=== PATIENT | female | born 1955 | race Caucasian/White ===

== ENCOUNTER → 2024-07-29 | Outpatient (CLI) | payer MEDICARE, BC, SELFPAY ==
[2024-07-29 13:03] LABS: Collection Type, Urine Clean Catch
[2024-07-29 13:15] LABS: Basophils % (Auto) 1 % (0-2.5); Eosinophils # (Auto) 0.1 Thou/mm3 (0.0-0.5); Eosinophils % (Auto) 2 % (0-10); Hematocrit 41.9 % (36.0-46.0); Hemoglobin 13.6 g/dL (12.0-16.0); Immature Granulocytes % (Auto) 0 % (0-0); Immature Granulocytes Auto 0.01 Thou/mm3 (0.00-0.00); Lymphocytes # (Auto) 0.6 Thou/mm3 (1.0-4.8); Lymphocytes % (Auto) 9 % (10-50); Mean Corpuscular HGB Conc 32.5 g/dl (31.0-37.0); Mean Corpuscular Hemoglobin 27.9 pg (25.0-35.0); Mean Corpuscular Volume 86 fL (80-100); Monocytes # (Auto) 0.6 Thou/mm3 (0.0-0.8); Monocytes % (Auto) 9 % (0-12); Neutrophils # (Auto) 5.1 Thou/mm3 (1.8-7.7); Neutrophils % (Auto) 79 % (37-80); Nucleated Red Blood Cell % 0 /100 WBC (0); Platelet Count 326 Thou/mm3 (140-440); RDW Standard Deviation 46.5 fL (36.4-46.3); Red Blood Count 4.87 Miln/mm3 (4.00-5.20); White Blood Count 6.5 Thou/mm3 (3.6-11.0)
[2024-07-29 13:17] LABS: Bacteria,Urine Rare; Bilirubin,Urine Negative (Negative); Blood,Urine Negative (Negative); Clarity,Urine Clear (Clear/Hazy); Color,Urine Lt-Yellow (Lt Yel-Yel); Culture Indicated,Urine Not Indicated; Glucose, Urine Negative (Negative); Ketones,Urine Negative (Negative); Leukocyte Esterase,Urine Positive (Negative); Nitrite,Urine Negative (Negative); Protein,Urine Negative (Neg - Trace); RBC,Urine 4 /hpf (0-3); Squamous Epithelial Cell,Urine 1 /hpf (0-5); Urobilinogen,Urine Negative mg/dL (0.0-1.0); WBC,Urine 2 /hpf (0-5)
[2024-07-29 13:30] LABS: Vitamin B12 215 pg/mL (211-911); Vitamin D 25 Hydroxy Total 14.2 ng/mL (7.3-40.2)
[2024-07-29 13:49] LABS: Ferritin 11 ng/mL (7.3-270.7); Iron 57 mcg/dL (50-170)
[2024-07-29 13:54] LABS: Alanine Aminotransferase 11 U/L (10-49); Albumin, Serum 4.5 gm/dL (3.4-4.8); Albumin/Globulin Ratio 2.1 (1.2-2.2); Alkaline Phosphatase 145 U/L (46-116); Aspartate Amino Transferase 17 U/L (0-34); BUN/Creatinine Ratio 19 Ratio (12-20); Bilirubin,Total 0.4 mg/dL (0.3-1.2); Blood Urea Nitrogen 15 mg/dL (9-23); Calcium 9.4 mg/dL (8.3-10.6); Calcium (Corrected) 9.4 mg/dL (8.5-10.1); Chloride 105 mMol/L (98-107); Cholesterol 196 mg/dL (132-200); Creatinine (Component) 0.8 mg/dL (0.6-1.3); Globulin 2.1 gm/dL (2.3-3.5); Glucose 85 mg/dL (74-106); HDL Cholesterol 65 mg/dL (40-60); LDL Cholesterol,Calculated 116 mg/dL (0-130); Osmolality,Calculated 279 (275-295); Potassium 4.9 mMol/L (3.4-5.1); Sodium 140 mMol/L (136-145); Thyroid Stimulating Hormone 1.97 uIU/mL (0.55-4.78); Total Protein 6.6 gm/dL (5.7-8.2); Triglycerides 76 mg/dL (30-150); eGFR > 60 See Note
[2024-07-29 14:02] LABS: Anion Gap 8 (7-16)
== END | disposition home or self-care (01) ==
LOC: COPL 12:22
PROVIDERS: PCP Family Medicine; Referring Provider Physician Assistant; Visit Provider Physician Assistant
DX: I10 Essential (primary) hypertension (principal); E55.9 Vitamin D deficiency, unspecified; E78.5 Hyperlipidemia, unspecified; Z98.84 Bariatric surgery status; D51.9 Vitamin B12 deficiency anemia, unspecified
CPT/HCPCS: 36415; 80053; 80061; 81001; 82306; 82607; 82728; 83540; 84443; 85025

== ENCOUNTER → 2024-09-03 | Outpatient (CLI) | payer MEDICARE, BC, SELFPAY ==
--- NOTE | 2024-09-03 09:00 | XR_ITS ---
Examination: Breast ultrasound, unilateral, right complete Date and time of exam: September 03, 2024 0903 hours INDICATIONS: Patient states lump inner right breast which is tender beginning a few months ago Technique: Real-time salter scale ultrasonographic imaging performed right breast including all 4 quadrants as well as nipple retroareolar and axillary region. Findings: No cystic or solid mass IMPRESSION: No cystic or solid mass BI-RADS Category 0: Incomplete: Recommend diagnostic mammography follow-up
--- NOTE | 2024-09-03 09:33 | XR_ITS ---
Examination: Diagnostic digital mammography, bilateral Computer aided detection 3-D breast Tomosynthesis, bilateral Date and time of exam: September 03, 2024 0939 hours INDICATIONS: Patient states right breast lump one to 2:00 position noted 4 months ago Technique: Nonmagnified MLO, CC views of the breasts to been obtained, reconstructed from 3-D Tomosynthesis images. R2 computer aided detection program utilized for evaluation of suspicious masses and/or abnormal calcifications. 3-D Tomosynthesis images obtained. Findings: Scattered areas of fibroglandular density. Benign calcifications. No suspicious masses Impression: BI-RADS Category 2: Benign findings Recommend yearly follow-up mammography.
== END | disposition home or self-care (01) ==
PROVIDERS: PCP Physician Assistant; Referring Provider Physician Assistant; Visit Provider Physician Assistant
DX: R92.323 Mammographic fibroglandular density, bilateral breasts (principal); R92.1 Mammographic calcification found on diagnostic imaging of breast
CPT/HCPCS: 76641; 77062; 77066; G0279

== ENCOUNTER → 2024-09-11 | Outpatient (CLI) | payer MEDICARE, BC, SELFPAY ==
--- NOTE | 2024-09-11 13:50 | XR_ITS ---
Examination: Knee, left , 3 views Technique: Knee AP, lateral, oblique 3 views Date and time of exam: September 11, 2024 1400 hrs. Indications: Knee pain, unable to bear weight on the knee beginning 2 months ago Findings: Prominent osteopenia No acute fracture Moderate narrowing medial joint space Mild to moderate osteoarthritis lateral patellofemoral joints Small knee effusion Impression: Moderate narrowing medial joint space Mild to moderate osteoarthritis lateral patellofemoral joints
[2024-09-17 06:44] LABS: Fecal Globin Result NOT DETECTED (NOT DETECTED)
== END | disposition home or self-care (01) ==
LOC: CDIM 14:04 → SLDO 14:15
PROVIDERS: PCP Family Medicine; Referring Provider Physician Assistant; Visit Provider Radiology Diagnostic Radiology
DX: M25.862 Other specified joint disorders, left knee (principal); M17.12 Unilateral primary osteoarthritis, left knee; I10 Essential (primary) hypertension; E55.9 Vitamin D deficiency, unspecified; E78.5 Hyperlipidemia, unspecified; Z98.84 Bariatric surgery status; D51.9 Vitamin B12 deficiency anemia, unspecified
CPT/HCPCS: 73562; 82274; G0328

== ENCOUNTER → 2025-04-21 | Outpatient (CLI) | payer MEDICARE, BC, SELFPAY ==
[2025-04-21 15:29] LABS: Collection Type, Urine Clean Catch
[2025-04-21 17:34] LABS: Bilirubin,Urine Negative (Negative); Blood,Urine Negative (Negative); Clarity,Urine Clear (Clear/Hazy); Color,Urine Yellow (Lt Yel-Yel); Glucose, Urine Negative (Negative); Ketones,Urine Negative (Negative); Leukocyte Esterase,Urine Negative (Negative); Nitrite,Urine Negative (Negative); PH,Urine 5.5 (5.0-7.0); Protein,Urine Negative (Neg - Trace); RBC,Urine 2 /hpf (0-3); Specific Gravity,Urine 1.024 (1.001-1.035); Squamous Epithelial Cell,Urine 1 /hpf (0-5); Urobilinogen,Urine Negative mg/dL (0.0-1.0); WBC,Urine 1 /hpf (0-5)
== END | disposition home or self-care (01) ==
PROVIDERS: PCP Family Medicine; Referring Provider Registered Nurse; Visit Provider Registered Nurse
DX: N39.0 Urinary tract infection, site not specified (principal); R31.9 Hematuria, unspecified
CPT/HCPCS: 81001; 87086

== ENCOUNTER → 2025-06-28 | Outpatient (CLI) | payer MEDICARE, BC, SELFPAY ==
--- NOTE | 2025-06-28 16:29 | XR_ITS ---
EXAMINATION: Cervical spine, 5 views Technique: Cervical spine AP, AP odontoid, lateral, bilateral obliques, 5 views Exam date and time: June 28, 2025, 1718 hours INDICATIONS: Neck pain beginning 3 weeks ago. FINDINGS: Adequate alignment cervical vertebral bodies. Moderate disc narrowing C4-C5. Advanced disc narrowing C5-C6, C6-C7 Moderate bilateral neuroforaminal stenosis C4-C5, C5-C6, C6-C7 No fracture Intact odontoid IMPRESSION: Advanced degenerative disc disease C5-C6, C6-C7
--- NOTE | 2025-06-28 16:29 | XR_ITS ---
Examination: Knee, left, 3 views Technique: Knee AP, lateral, oblique 3 views Date and time of exam: July 12, 2025, 1400 hours INDICATIONS: Left knee pain beginning 3 weeks ago. FINDINGS: Moderate tricompartment osteoarthritis. No fracture or dislocation IMPRESSION: Moderate tricompartment osteoarthritis
--- NOTE | 2025-06-28 16:29 | XR_ITS ---
Examination: Bilateral hands, 6 views. Technique: AP, Oblique, Lateral each hand total 6 views Date and time of exam: June 28, 2025, 1706 hours INDICATIONS: Bilateral hand pain beginning 3 weeks ago. FINDINGS: Moderate juxta articular bone demineralization. Mild diffuse narrowing joints of the wrists and hands No erosive arthritis No fractures No foreign bodies Impression: Moderate juxta articular bone demineralization Mild diffuse narrowing joints of the wrists and hands No erosive arthritis
--- NOTE | 2025-06-28 16:29 | XR_ITS ---
EXAMINATION: Shoulder bilateral, 6 views Technique: Shoulder AP internal rotation, AP external rotation, Y view each shoulder total 6 views Exam date and time : June 28, 2025, 1715 hours INDICATIONS: Bilateral shoulder pain beginning 3 weeks ago. FINDINGS: Bilateral moderate narrowing glenohumeral joints Bilateral moderate osteoarthritis acromioclavicular joints No shoulder fractures or dislocations IMPRESSION: Bilateral moderate narrowing glenohumeral joints
[2025-07-04 03:05] LABS: Cardiolipin Ab (IgA) <2.0 APL-U/mL; Cardiolipin Ab (IgG) <2.0 GPL-U/mL; Sjogren's antibody (SS-A) <1.0 NEG AI (<1.0 NEGATIVE); Sm Antibody <1.0 NEG AI (<1.0 NEGATIVE)
[2025-07-05 06:38] LABS: ANA Screen, IFA POSITIVE (NEGATIVE); ANA Titer 1:160 titer; B2-Glycoprotein I Ab IgA <2.0 U/mL; B2-Glycoprotein I Ab IgG <2.0 U/mL; B2-Glycoprotein I Ab IgM <2.0 U/mL; CCP Antibody (IgG)* <16 Units; Cardiolipin Ab (IgM) <2.0 MPL-U/mL; Complement Component C3* 179 mg/dL (83-193); Complement Component C4c* 32 mg/dL (15-57); DNA (ds) Antibody* 1 IU/mL; Scl-70 Antibody* <1.0 NEG AI (<1.0 NEGATIVE); Sjogren's Antibody (SS-B) <1.0 NEG AI (<1.0 NEGATIVE); Sm/RNP Antibody <1.0 NEG AI (<1.0 NEGATIVE); Thyroglobulin Antibodies* <1 IU/mL (< OR = 1); Thyroid Peroxidase Antibodies* 3 IU/mL (<9)
== END | disposition home or self-care (01) ==
LOC: COPL 16:20
PROVIDERS: Referring Provider Physician Assistant; Visit Provider Physician Assistant
DX: M50.323 Other cervical disc degeneration at C6-C7 level (principal); M25.812 Other specified joint disorders, left shoulder; M25.811 Other specified joint disorders, right shoulder; M17.12 Unilateral primary osteoarthritis, left knee; M89.8X0 Other specified disorders of bone, multiple sites; M25.50 Pain in unspecified joint; R53.83 Other fatigue
CPT/HCPCS: 36415; 72050; 73030; 73130; 73562; 86038; 86146; 86147; 86160; 86200; 86225; 86235; 86376; 86800